=== PATIENT | male | born 2000 | race Caucasian/White ===

== ENCOUNTER 2023-10-14 20:11 | Emergency (ER) | payer OTHER, SELFPAY ==
[2023-10-14 20:12] VITALS: BP 141/89; PULSE 71; RESP 17; TEMP 36.9; O2SAT 97; BMI 22.5
[2023-10-14] MEDS: OXYMETAZOLINE NASAL SPRAY 0.05% 15ML NS (20:21)
--- NOTE | 2023-10-14 20:21 | PC.NURSE ---
Provider at bedside. Removed a moderate blood clot from left nare. Applied Afrin to left nostril and applied pressure clamp.
--- NOTE | 2023-10-14 20:23 | [facility].EDGENADL ---
Discharge Plan Disposition Patient Disposition: Home, Self-Care Referrals Follow up/Referrals: Provider,Referral, MD [Primary Care Provider] - See instructions Activity Restrictions/Add. Instructions Additional Instructions/Restrictions: Your anterior epistaxis was controlled with oxymetazoline and direct pressure in the area or location of bleeding was identified and subsequently cauterized. Please return to the emergency department if you have any significant worsening of her symptoms. Clinical Impressions Clinical Impression: Anterior epistaxis Instructions Patient Instructions: DI for Nosebleed Discharge ED Provider: Isa Yanez General Adult HPI General Chief complaint: Epistaxis Stated complaint: nose bleed Time Seen by Provider: 10/14/23 20:14 History of Present Illness HPI narrative: 23-year-old male presents today with left anterior epistaxis. States he had nosebleeds as a child has not had any many years. Blew his nose and started bleeding. No direct trauma. No bruising or bleeding elsewhere. Not on any blood thinners or anticoagulants. Related Data Allergies Allergy/AdvReac Type Severity Reaction Status Date / Time cephalexin [From Keflex] Allergy Verified 10/14/23 20:26 [facility] Disclaimer: The information contained in this section may have been updated after the patient was seen, as this information can be updated by other users. Social History Smoking Status: Current every day smoker alcohol intake: never current occupational status: other Travel in the last 8 weeks: None ROS Obtained: Yes All systems reviewed & no additional complaints except as documented Physical Exam General General appearance: alert and in no apparent distress ENT ENT exam: Present other (Active left anterior epistaxis no evidence of posterior bleeding) Respiratory Respiratory exam: Present normal lung sounds bilaterally Cardiovascular Cardiovascular exam: Present regular rate and normal rhythm Neurological Exam Neurological exam: Present alert and oriented X3 Medical Decision Making Caleb Inquiry Pt receiving controlled substance: No Vital Signs: 10/14/23 20:12 Temperature 98.4 F Temperature Source Oral Pulse Rate [Left Radial] 71 Respiratory Rate 17 Blood Pressure [Right Arm] 141/89 H Blood Pressure Mean [Right Arm] 106 Blood Pressure Source [Right Arm] Automatic Cuff Blood Pressure Position [Right Arm] Sitting 02 Sat by Pulse Oximetry 97 Oxygen Delivery Method Room Air Orders (Tests/Meds): ED MEDICATIONS Discontinued Medications Generic Name Dose Route Start Last Admin Trade Name Freq PRN Reason Stop Dose Admin Oxymetazoline HCl 1 ml 10/14/23 20:26 10/14/23 20:21 Oxymetazoline Nasal Schaller 0.05% 15ml NS 10/14/23 20:27 1 ml ONCE ONE Administration Medical Decision Narrative: Well-appearing nontoxic 23-year-old male presented with left anterior epistaxis oxymetazoline and direct pressure been placed will reassess in 30 minutes. He is not on any anticoagulation I do not suspect that he has a bleeding disorder or that he is lost any significant metabolic. Reassessment 8:50 PM patient's epistaxis has now stopped on reassessment there is evidence of recent bleeding in the anterior septum and I discussed with him risk and benefits of additional cautery to aid in hemostasis after being discharged from emergency department she agreed to. Subsequently I used silver nitrate to cauterize the anterior septum which the patient tolerated well we had good success. Bleeding has stopped no evidence of posterior bleed he was discharged in stable condition with return precautions emphasized. Procedures Epistaxis Control Time Out Performed: Yes Nostril: left Direct Inspection: anterior source identified Clots Removed by: blowing nose Cautery Used: silver nitrate Device Inserted: other (Oxymetazoline direct pressure were applied prior to identifying location of bleeding and silver nitrate) Patient Tolerated Procedure: well Critical Care Critical Care Time Critical Care Time: No
[2023-10-14 20:55] VITALS: BP 136/78; PULSE 70; RESP 17; TEMP 36.9; O2SAT 98
--- NOTE | 2023-10-14 21:10 | PC.NURSE ---
Patient continues to have a small amount of bloody drainage. Dr. Yanez to bedside to reassess left nare. Will recheck in 10 minutes to verify hemostasis.
--- NOTE | 2023-10-14 21:22 | PC.NURSE ---
Reassessed patient's nare, clear drainage noted at this time. Patient reports slight pink drainage. Patient requests to remain for another 5 minutes to make sure bleeding remains controlled before discharge at this time. Updated provider.
== END 2023-10-14 21:27 | disposition home or self-care (01) ==
PROVIDERS: Emergency Provider Student in an Organized Health Care Education/Training Program
DX: R04.0 Epistaxis (principal); F17.210 Nicotine dependence, cigarettes, uncomplicated
CPT/HCPCS: 30901; 99283